=== PATIENT | female | born 1975 ===

== ENCOUNTER 2017-04-20 08:01 | Day surgery (SDC) | payer OTHER ==
[2017-04-20] MEDS ORDERED: Lactated Ringer's 500 ML IV ONE (09:18)
[2017-04-20 09:55] VITALS: O2SAT 100
[2017-04-20] MEDS ORDERED: Propofol 10 mg/ml Inj (20 ML) ONE (10:51)
[2017-04-20 11:35] VITALS: BP 100/62; PULSE 72; RESP 18; TEMP 97.1
== END 2017-04-20 11:39 | disposition home or self-care (01) ==
LOC: H.ENDO 08:01
PROVIDERS: ATTEND Internal Medicine Gastroenterology
DX: K29.50 Unspecified chronic gastritis without bleeding (principal); B96.81 Helicobacter pylori [H. pylori] as the cause of diseases classified elsewhere; R10.13 Epigastric pain